=== PATIENT | male | born 1955 | race Caucasian/White ===

== ENCOUNTER 2019-12-04 01:43 | Emergency (ER) | payer OTHER ==
[2019-12-04] MEDS: HYDROcodone 7.5MG/APAP 325MG 1 EA TAB PO ONE (02:52)
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
[2019-12-04 03:23] VITALS: O2SAT 97
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
[2019-12-04] MEDS: AMOXICILLIN & POT CLAVULANATE 875 MG TAB PO ONE (03:48)
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
[2019-12-04] MEDS: KETOROLAC TROMETHAMINE INJ 30 MG/ML VIAL IM ONE (03:49)
[2019-12-04 04:03] VITALS: BP 120/88
[2019-12-04 04:04] VITALS: TEMP 97.5
== END 2019-12-04 04:31 | disposition home or self-care (01) ==
LOC: ER 01:43
DX: S27.0XXA Traumatic pneumothorax, initial encounter (principal); S22.41XA Multiple fractures of ribs, right side, initial encounter for closed fracture; S22.030A Wedge compression fracture of third thoracic vertebra, initial encounter for closed fracture; S30.810A Abrasion of lower back and pelvis, initial encounter; S50.311A Abrasion of right elbow, initial encounter; S80.211A Abrasion, right knee, initial encounter; F10.129 Alcohol abuse with intoxication, unspecified; M47.812 Spondylosis without myelopathy or radiculopathy, cervical region; W17.89XA Other fall from one level to another, initial encounter; Y92.9 Unspecified place or not applicable; Z79.899 Other long term (current) drug therapy; Z79.82 Long term (current) use of aspirin
CPT/HCPCS: 36415; 71250; 72125; 74176; 80053; 80320; 82150; 82550; 82553; 84484; 85025; 93005; J1885